=== PATIENT | female | born 1975 | race Caucasian/White ===

== ENCOUNTER → 2021-04-23 | Outpatient (CLI) | payer OTHER | END | disposition home or self-care (01) | LOC: COVID19 17:59 | PROVIDERS: ATTEND Internal Medicine | DX: Z11.52 Encounter for screening for COVID-19 (principal) ==

== ENCOUNTER 2025-07-26 10:48 | Emergency (ER) | payer SELFPAY ==
[2025-07-26] MEDS ORDERED: PENICILLIN VK500 MG PO (11:07)
[2025-07-26] MEDS ORDERED: Motrin,Rufen800 MG PO (11:07)
[2025-07-26] MEDS ORDERED: PENICILLIN V POTASSIUM 500 MG TAB PO ONE (11:10)
[2025-07-26] MEDS ORDERED: Acetaminophen/Oxycodone 5 MG/325 MG TABLET PO ONE (11:10)
== END 2025-07-26 11:10 | disposition home or self-care (01) ==
LOC: ED 10:48
DX: K04.7 Periapical abscess without sinus (principal)